=== PATIENT | female | born 1995 | race Native Hawaiian/Other Pacific Islander ===

== ENCOUNTER 2018-03-25 11:08 | Outpatient (CLI) | payer OTHER | END 2018-03-25 21:33 | disposition home or self-care (01) | LOC: US 11:08 | DX: R10.2 Pelvic and perineal pain (principal) ==

== ENCOUNTER 2018-12-10 21:51 | Emergency (ER) | payer OTHER ==
[~2018-12-10] VITALS: Ht 162.6 cm; Wt 99.8 kg
[2018-12-10 23:04] VITALS: BP 124/74; TEMP 98.1
== END 2018-12-10 23:09 | disposition home or self-care (01) ==
LOC: ED 21:51
DX: N30.90 Cystitis, unspecified without hematuria (principal); N93.8 Other specified abnormal uterine and vaginal bleeding
CPT/HCPCS: 81000; 87077; 87086; 87088; 87186; 99283

== ENCOUNTER 2019-06-30 05:43 | Emergency (ER) | payer OTHER ==
[~2019-06-30] VITALS: Ht 162.6 cm; Wt 108.9 kg
[2019-06-30 06:04] VITALS: TEMP 98.1
[2019-06-30 06:50] LABS: PLATELET COUNT 245 K/uL (152-353)
[2019-06-30 07:24] LABS: POTASSIUM 3.5 mmol/L (3.6-5.2)
[2019-06-30 09:00] VITALS: BP 110/61
== END 2019-06-30 09:20 | disposition home or self-care (01) ==
LOC: ED 05:43
PROVIDERS: Student in an Organized Health Care Education/Training Program
DX: R10.13 Epigastric pain (principal); N39.0 Urinary tract infection, site not specified
CPT/HCPCS: 80053; 81000; 81025; 82150; 83690; 85027; 87077; 87086; 87088; 87186; 96360; 96365; 96375; 99284; J0744; J2270; J2405

== ENCOUNTER 2019-07-01 19:34 | Emergency (ER) | payer OTHER ==
[~2019-07-01] VITALS: Ht 162.6 cm; Wt 108.9 kg
[2019-07-01 21:35] LABS: PLATELET COUNT 237 K/uL (152-353)
[2019-07-01 21:39] LABS: POTASSIUM 3.3 mmol/L (3.6-5.2); SODIUM 133 mmol/L (136-145)
[2019-07-01 23:29] VITALS: BP 148/74; TEMP 97.7
== END 2019-07-01 23:30 | disposition home or self-care (01) ==
LOC: ED 19:34
PROVIDERS: Emergency Medicine
DX: R10.84 Generalized abdominal pain (principal); N39.0 Urinary tract infection, site not specified; K59.09 Other constipation
CPT/HCPCS: 80053; 84702; 85027; 96360; 96375; 99284; J1885